=== PATIENT | male | born 1965 | race Caucasian/White ===

== ENCOUNTER 2020-12-11 13:16 | Emergency (ER) | payer MEDICAID, SELFPAY ==
[2020-12-11] VITALS (7 sets, daily range): BP systolic 131–151; BP diastolic 83–97; PULSE 63–91; RESP 18–20; TEMP 36.6–37.2; O2SAT 94–99; BMI 18.8
--- NOTE | 2020-12-11 14:45 | CT_ITS ---
PROCEDURE: CT CHEST WO CON CLINICAL INDICATION: cough, tobacco, weight loss COMPARISON: No exams were available for comparison TECHNIQUE: Axial images obtained with sagittal and coronal reformats. All CT scans at the facility use one or more dose reduction, viz: automated exposure control, ma/kV adjustment per patient size (including targeted exams where dose is matched to indication, i.e. head), or iterative reconstruction technique. FINDINGS: HEART AND MEDIASTINAL STRUCTURES: No mediastinal or hilar mass or adenopathy. Dense coronary artery calcification is noted. LUNGS AND PLEURAL SPACES: COPD changes. No suspicious nodules. No infiltrates or effusions. BONY STRUCTURES: No acute bony abnormalities apparent. UPPER ABDOMEN: There is a 2.1 cm soft tissue nodule in the retroperitoneum on the left. This is along the posterior aspect of the left adrenal gland and may be adrenal in origin or could be due to a lymph node. There is moderate thickening the fundus and cardia of the stomach. There is a 1.5 and a 0.5 cm area of decreased density in the left hepatic lobe segment 2 which is indeterminate. ADDITIONAL FINDINGS: No other significant abnormalities. IMPRESSION: 1. No suspicious pulmonary masses. 2. COPD with hyperinflation. 3. 2.6 cm soft tissue nodule in the retroperitoneum on the left contiguous with the left adrenal gland and could be adrenal in origin or could represent an enlarged lymph node. This is more dense than what 1 would expect for an adrenal adenoma. Dedicated CT of the adrenals without and with contrast with thin sections and delayed imaging may provide further evaluation 4. At least 2 hypodense lesions of the left hepatic lobe which are indeterminate. Cyst, hemangioma, or metastatic disease would be included in the differential diagnosis. CT or MRI with hemangioma protocol may provide further evaluation. This could be performed in conjunction with adrenal evaluation. 5. Thickening of the gastric cardia and fundus. This asymmetric thickening is somewhat suspicious for a neoplastic process. Upper endoscopy suggested for further evaluation. Dictated by: Tanmay Gutiérrez MD 12/11/2020 15:52 Tanmay Gutiérrez MD in [place] 12/11/2020 15:52
--- NOTE | 2020-12-11 14:55 | HMH.EDGENADL ---
ED Disposition Clinical Impression: Adrenal nodule, Liver nodule Disposition: Home, Self-Care Condition on Discharge: Good Additional Instructions: You have been evaluated for palpitations, anxiety. There is no evidence of a lung nodule. However, there is evidence of a left adrenal nodule and liver nodules. It is very important that you follow-up with your primary care doctor as well as gastroenterology. Return to the emergency department at once for any new or worsening symptoms. Referrals: Corky Whyte [Primary Care Provider] - Felipe Reis MD [Staff Physician] - Time of Disposition: 16:53 - Critical Care Critical Care Time: No Attestation: On 12/11/20, the high probability of a clinically significant, sudden or life threatening deterioration of the following system(s) required my full and direct attention, intervention and personal management. The time I documented below is in addition to time spent performing reported procedures but includes the following listed in this critical care notation. Medical Decision Making - Medical Records Medical records reviewed: Yes: I reviewed the patient's medical records. - Woo Inquiry Pt receiving controlled substance: No Vital Signs: 12/11/20 14:12 12/11/20 14:15 12/11/20 14:30 Temperature 99.0 F Temperature Source Oral Pulse Rate 81 81 Pulse Rate [Left Radial] 91 H Respiratory Rate 18 Blood Pressure 134/83 133/89 Blood Pressure [Right Arm] 134/83 Blood Pressure Mean 107 102 Blood Pressure Mean [Right Arm] 100 Blood Pressure Source [Right Arm] Automatic Cuff Blood Pressure Position [Right Arm] Sitting 02 Sat by Pulse Oximetry 98 99 94 L Oxygen Delivery Method Room Air 12/11/20 15:00 12/11/20 15:39 12/11/20 16:00 Temperature Temperature Source Pulse Rate 75 69 63 Pulse Rate [Left Radial] Respiratory Rate Blood Pressure 138/91 H 131/96 H Blood Pressure [Right Arm] Blood Pressure Mean 100 109 Blood Pressure Mean [Right Arm] Blood Pressure Source [Right Arm] Blood Pressure Position [Right Arm] 02 Sat by Pulse Oximetry 98 98 98 Oxygen Delivery Method - Lab Data Lab Results 12/11/20 15:15: WBC 10.4, RBC 4.75, Hgb 15.1, Hct 45.9, MCV 96.7 H, MCH 31.7 H, MCHC 32.8, RDW 14.1, Plt Count 319, MPV 7.6, Neut % (Auto) 0.3 L, Lymph % (Auto) 94.3 H, [place] % (Auto) 4.5, Eos % (Auto) 0.7, Baso % (Auto) 0.2, Neut # (Auto) 0.0 L*, Lymph # (Auto) 9.8 H, [place] # (Auto) 0.5, Eos # (Auto) 0.1, Baso # (Auto) 0.0 12/11/20 15:15: Sodium 139, Potassium 4.3, Chloride 105, Carbon Dioxide 27, Anion Gap 11.3, BUN 12, Creatinine 1.30 H, Estimated Creat Clear 50, Estimated GFR 58 L, Est GFR ( Amer) 70, Glucose 117 H, Calcium 9.2, Total Bilirubin 0.6, AST 30, ALT 17, Alkaline Phosphatase 78, Total Protein 7.2, Albumin 4.1, Globulin 3.1, Albumin/Globulin Ratio 1.3, Lipase 169 12/11/20 15:15: SARS-CoV-2 (PCR) Not detected, Influenza A Untype (PCR) Not detected, Influenza Type B (PCR) Not detected Result diagrams: 12/11/20 15:15 12/11/20 15:15 Orders (Tests/Meds): ORDERS Category Date Time Status Complete Blood Count Auto Diff Stat Lab 12/11/20 15:15 Results - CT Data CT Scan: Chest Time Received: 16:[address] Reviewed: Yes: I have reviewed the patient's CT results, I have viewed the radiologist's interpretation Preliminary Findings: Normal/NAD Findings Narrative: IMPRESSION: 1. No suspicious pulmonary masses. 2. COPD with hyperinflation. 3. 2.6 cm soft tissue nodule in the retroperitoneum on the left contiguous with the left adrenal gland and could be adrenal in origin or could represent an enlarged lymph node. This is more dense than what 1 would expect for an adrenal adenoma. Dedicated CT of the adrenals without and with contrast with thin sections and delayed imaging may provide further evaluation 4. At least 2 hypodense lesions of the left hepatic lobe which are indeterminate. Neyda, he
[2020-12-11 15:35] LABS: Basophils % 0.2 % (0.1-2.0); Eosinophils # 0.1 K/mm3 (0.0-0.4); Eosinophils % 0.7 % (0.1-12.0); Hematocrit 45.9 % (42.0-52.0); Hemoglobin 15.1 g/dL (14.1-18.0); Lymphocytes # 9.8 K/mm3 (0.7-4.5); Lymphocytes % 94.3 % (10-50); Mean Corpuscular HGB Conc 32.8 g/dL (31.8-35.4); Mean Corpuscular Hemoglobin 31.7 pg (27.0-31.2); Mean Corpuscular Volume 96.7 fl (80-94); Mean Platelet Volume 7.6 fl (7.4-10.4); Monocytes # 0.5 K/mm3 (0.1-1.0); Monocytes % 4.5 % (1.7-9.3); Platelet Count 319 K/mm3 (142-424); Red Blood Count 4.75 M/mm3 (4.60-6.20); Red Cell Distribution Width 14.1 % (11.5-17.5); White Blood Count 10.4 K/mm3 (4.8-10.8)
[2020-12-11 15:39] LABS: Chloride 105 mmol/L (98-107); Potassium 4.3 mmoL/L (3.5-5.1); Sodium 139 mmol/L (136-145)
[2020-12-11 15:40] LABS: Neutrophils % 0.3 % (37.0-80.0)
[2020-12-11 15:41] LABS: Blood Urea Nitrogen 12 mg/dl (9-20); Coronavirus 19, PCR Not Detected (NotDetected); Creatinine Clearance Estimated 50 mL/min (50-200); Estimated Glomerular Filt Rate 58 ml/min (>60); GFR (African American) 70 ML/MIN (>60); Influenza A, PCR Not Detected (NotDetected); Influenza B, PCR Not Detected (NotDetected); MANUAL DIFFERENTIAL MANUAL DIFFERENTIAL (MANUAL DIFF)
[2020-12-11 15:42] LABS: Alanine Aminotransferase 17 U/L (12-78); Albumin Level 4.1 g/dl (3.5-5.0); Albumin/Globulin Ratio 1.3 (1.1-1.8); Alkaline Phosphatase 78 U/L (38-126); Anion Gap 11.3 mEq/L (5-15); Aspartate Amino Transferase 30 U/L (17-59); Bilirubin,Total 0.6 mg/dl (0.2-1.3); Calcium 9.2 mg/dl (8.4-10.2); Carbon Dioxide 27 mmol/L (22.0-30.0); Globulin 3.1 g/dL (1.3-3.2); Glucose 117 mg/dl (74-100); Lipase 169 U/L (23-300); Total Protein,Serum 7.2 g/dl (6.3-8.2)
[2020-12-11 17:03] LABS: Eosinophils % 3 % (0-3); Lymphocytes % 4 % (10-50); Monocytes % 1 % (2-9); Neutrophils % 83 % (42-76); Platelet Estimate Normal; Total Cells Counted 100
== END 2020-12-11 18:17 | disposition home or self-care (01) ==
PROVIDERS: Emergency Provider Emergency Medicine; PCP Psychiatry & Neurology Neurology
DX: E27.8 Other specified disorders of adrenal gland (principal); K76.89 Other specified diseases of liver; F41.9 Anxiety disorder, unspecified; F17.210 Nicotine dependence, cigarettes, uncomplicated; Z11.52 Encounter for screening for COVID-19
CPT/HCPCS: 71250; 80053; 83690; 85007; 85025; 99283; U0003

== ENCOUNTER 2023-07-26 17:55 | Emergency (ER) | payer MEDICAID, SELFPAY ==
[2023-07-26 17:56] VITALS: BP 168/101; PULSE 80; RESP 18; TEMP 36.7; O2SAT 96; BMI 23.5
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
[2023-07-26] MEDS: ONDANSETRON 4MG/2ML VIAL 4 MG IV (18:27)
[2023-07-26] MEDS: LACTATED RINGERS 1000ML 1,000 ML 999 ML IV (18:27)
[2023-07-26 18:38] LABS: Basophils % 0.5 % (0.1-2.0); Eosinophils # 0.1 K/mm3 (0.0-0.4); Eosinophils % 1.5 % (0.1-12.0); Hematocrit 44.2 % (42.0-52.0); Hemoglobin 14.5 g/dL (14.1-18.0); Lymphocytes # 7.8 K/mm3 (0.7-4.5); Lymphocytes % 92.9 % (10-50); Mean Corpuscular HGB Conc 32.7 g/dL (31.8-35.4); Mean Corpuscular Hemoglobin 31.9 pg (27.0-31.2); Mean Corpuscular Volume 97.5 fl (80-94); Mean Platelet Volume 7.6 fl (7.4-10.4); Monocytes # 0.4 K/mm3 (0.1-1.0); Monocytes % 4.5 % (1.7-9.3); Neutrophils # 0.1 K/mm3 (1.8-7.8); Platelet Count 269 K/mm3 (142-424); Red Blood Count 4.53 M/mm3 (4.60-6.20); Red Cell Distribution Width 14.3 % (11.5-17.5); White Blood Count 8.3 K/mm3 (4.8-10.8)
[2023-07-26 18:39] LABS: Chloride 108 mmol/L (98-107); Potassium 4.2 mmoL/L (3.5-5.1); Sodium 139 mmol/L (136-145)
[2023-07-26 18:41] LABS: Blood Urea Nitrogen 8 mg/dl (9-20); Creatinine Clearance Estimated 88 mL/min (50-200); Estimated Glomerular Filt Rate 87 ml/min (>60); GFR (African American) 106 ML/MIN (>60)
[2023-07-26 18:42] LABS: Alanine Aminotransferase 24 U/L (12-78); Albumin/Globulin Ratio 1.3 (1.1-1.8); Alkaline Phosphatase 76 U/L (38-126); Anion Gap 4.2 mEq/L (5-15); Aspartate Amino Transferase 32 U/L (17-59); Bilirubin,Total 0.5 mg/dl (0.2-1.3); Carbon Dioxide 31 mmol/L (22.0-30.0); Glucose 110 mg/dl (74-100)
[2023-07-26 18:43] LABS: Lactic Acid 1.1 mmol/L (0.7-2.1); Neutrophils % 0.6 % (37.0-80.0)
[2023-07-26 18:44] LABS: Activated Partial Thrombo Time 25.9 seconds (22.8-30.6); INR 0.97 (0.9-1.1); Prothrombin Time 10.5 seconds (10.1-12.5)
[2023-07-26 18:46] LABS: MANUAL DIFFERENTIAL MANUAL DIFFERENTIAL (MANUAL DIFF)
[2023-07-26 18:55] LABS: Lipase 65 U/L (23-300)
[2023-07-26 19:28] LABS: Microscopic, Urine URINE MICROSCOPIC (MICROSCOPIC)
[2023-07-26 19:31] LABS: Appearance,Urine CLEAR (Clear); Bilirubin,Urine Negative (Negative); Blood, Urine Negative (Negative); Color,Urine YELLOW (Yellow); Glucose,Urine (UA) Negative (Negative); Ketones,Urine Negative (Negative); Leukocyte Esterase,Urine 1+ (Negative); Nitrate,Urine Negative (Negative); PH,Urine 7.5 (5.0-8.5); Protein,Urine Negative (Negative); Urobilinogen,Urine 0.2 EU/dl (0.2)
[2023-07-26 19:32] LABS: Eosinophils % 1 % (0-3); Lymphocytes % 24 % (10-50); Monocytes % 2 % (2-9); Neutrophils % 70 % (42-76); Platelet Estimate Normal; Total Cells Counted 100
--- NOTE | 2023-07-26 19:36 | PC.NURSE ---
Pt ambulated to restroom, UA obtained, pt provided blanket and updated on status.
[2023-07-26 19:37] LABS: Macrocytosis 1+
[2023-07-26 19:53] LABS: Amorphous Sediment,Urine Trace /lpf; WBC,Urine Occasional #/hpf (0-3)
[2023-07-26 20:05] VITALS: BP 152/84; PULSE 87; RESP 16; TEMP 36.6; O2SAT 99
== END 2023-07-26 20:07 | disposition home or self-care (01) ==
PROVIDERS: Emergency Provider Emergency Medicine; PCP Psychiatry & Neurology Neurology
DX: R11.0 Nausea (principal); B96.89 Other specified bacterial agents as the cause of diseases classified elsewhere; R53.1 Weakness; F17.210 Nicotine dependence, cigarettes, uncomplicated; I10 Essential (primary) hypertension; E78.5 Hyperlipidemia, unspecified
CPT/HCPCS: 80053; 81001; 83605; 83690; 85007; 85025; 85610; 85730; 87086; 96361; 96374; 99284; J2405

== ENCOUNTER 2023-08-26 08:46 | Outpatient (CLI) | payer MEDICAID, SELFPAY ==
--- NOTE | 2023-08-26 08:46 | FL_ITS ---
FINAL REPORT CLINICAL HISTORY: difficulty swallowing; ft .49, 40.13mgy FINDINGS: BARIUM SWALLOW HISTORY: Dysphagia. TECHNIQUE: The patient ingested barium contrast. Spot and overhead films were performed. A total of 39 images were saved. FINDINGS: There is a small sliding-type hiatal hernia. There is gastroesophageal reflux to the midesophagus. No mucosal defects are seen. Motility appears normal. No changes of esophagitis are evident. 13 mm barium tablet passes easily through the esoophagus and into the stomach. FLUOROSCOPY TIME: 0.49 minutes Radiation exposure in Reference air Kerma: 40.13 mGy IMPRESSION: Small sliding-type hiatal hernia with gastroesophageal reflux. Reviewed, Interpreted and Dictated by Dioni Dominique MD Transcribed by Lisa Carmen PA-C Authenticated and [facility]
--- NOTE | 2023-08-26 08:46 | CT_ITS ---
FINAL REPORT TECHNIQUE: Thin section axial CT images with coronal and sagittal reformats were performed through the neck. This study was performed with techniques to keep radiation doses as low as reasonably achievable (ALARA). Individualized dose reduction techniques using automated exposure control or adjustment of mA and/or kV according to the patient''s size were employed. CLINICAL HISTORY: enlarged lymph node-left side FINDINGS: Exam is limited without the benefit of intravenous contrast. Multiple small cervical lymph nodes are seen bilaterally which are fairly symmetric. No dominant lymph node is seen. There is mild right maxillary mucoperiosteal thickening. Moderate hypertrophic changes of degenerative disc disease are seen at C5-6 with posterior osteophytes and high-grade bilateral neuroforaminal narrowing. Salivary glands are normal. Larynx is unremarkable. Thyroid gland is unremarkable. IMPRESSION: No dominant lymph node identified. Exam limited without the benefit of intravenous contrast. Reviewed, Interpreted and Dictated by Dioni Dominique MD Transcribed by Jessica Churchill Authenticated and [facility]
[2023-08-26] MEDS: E-Z-GASII EFFERVESCENT GRANULES;1PK 1 EACH PO (09:56)
[2023-08-26] MEDS: BARIUM SULFATE(LIQUID E-Z-PAQUE);355ML BOTTLE 355 ML PO (09:56)
[2023-08-26] MEDS: BARIUM SULFATE (E-Z-HD 340GM);135ML BOTTLE 135 ML PO (09:56)
== END 2023-08-26 23:59 | disposition home or self-care (01) ==
LOC: RAD 08:46
PROVIDERS: PCP Nurse Practitioner Family; Visit Provider Nurse Practitioner
DX: R59.9 Enlarged lymph nodes, unspecified (principal); R13.10 Dysphagia, unspecified
CPT/HCPCS: 70490; 74220